=== PATIENT | female | born 1970 | race African-American/Black ===

== ENCOUNTER 2023-11-07 16:33 | Emergency (ER) | payer OTHER ==
[2023-11-07 16:44] VITALS: BP 147/61; PULSE 83; RESP 18; TEMP 98.2; BMI 33.9
[2023-11-07] MEDS ORDERED: IBUPROFEN 600 MG TABLET (FP) PO ONE ×2 (18:40→18:42)
== END 2023-11-07 20:20 | disposition home or self-care (01) ==
LOC: JERFT 16:33
DX: M79.672 Pain in left foot (principal); W20.8XXA Other cause of strike by thrown, projected or falling object, initial encounter; Y99.0 Civilian activity done for income or pay; Y92.9 Unspecified place or not applicable
CPT/HCPCS: 73610-TC-LT-FY; 73630-TC-LT; 99283-25